=== PATIENT | female | born 1990 | race Two or more races ===

== ENCOUNTER 2019-04-17 18:25 | Emergency (ER) | payer SELFPAY ==
--- NOTE | 2019-04-17 19:24 | EDM.PDOC ---
ED HPI GENERAL MEDICAL PROBLEM - General Chief Complaint: Genitourinary Problem Stated Complaint: DONT FEEL WELL Time Seen by Provider: 04/17/19 19:13 - History of Present Illness INITIAL COMMENTS - FREE TEXT/NARRATIVE: HISTORY AND PHYSICAL: History of present illness: Patient 28-year-old female who presents with a concern of painless jaundice she' s had this 1 week she does have history of IV drug abuse she denies known history of HIV hepatitis or any other medical problems. Review of systems: As per history of present illness and below otherwise all systems reviewed and negative. Past medical history: As per history of present illness and as reviewed below otherwise noncontributory. Surgical history: As per history of present illness and as reviewed below otherwise noncontributory. Social history: No reported history of drug or alcohol abuse. Family history: As per history of present illness and as reviewed below otherwise noncontributory. Physical exam: HEENT: Atraumatic, normocephalic, pupils reactive, scleral icterus noted, mucous membranes moist, throat clear, neck supple, nontender, trachea midline. Lungs: Clear to auscultation, breath sounds equal bilaterally, chest nontender. Heart: S1S2, regular, negative for clicks, rubs, or JVD. Abdomen: Soft, nondistended, nontender. Negative for masses or hepatosplenomegaly. Negative for costovertebral tenderness. Pelvis: Stable nontender. Genitourinary: Deferred. Rectal: Deferred. Extremities: Atraumatic, negative for cords or calf pain. Neurovascular unremarkable. Neuro: Awake, alert, oriented. Cranial nerves II through XII unremarkable. Cerebellum unremarkable. Motor and sensory unremarkable throughout. Exam nonfocal. Diagnostics: CBC CMP PT/INR hCG UA hepatitis panel hepatitis B surface antigen and antibody CT abdomen and pelvis with IV contrast Therapeutics: Normal saline 1 L bolus Impression: #1 painless jaundice Definitive disposition and diagnosis as appropriate pending reevaluation and review of above. lower back Pain Score (Numeric/FACES): 6 - Related Data Allergies Allergy/AdvReac Type Severity Reaction Status Date / Time latex Allergy Rash Verified 04/17/19 18:41 Home Meds: Home Meds . [No Known Home Meds] 01/25/16 [History] Past Medical History - Past Health History Medical/Surgical History: Denies Medical/Surgical History - Infectious Disease History Infectious Disease History: Reports: None Social & Family History - Family History Family Medical History: Noncontributory - Tobacco Use Smoking Status *Q: Current Every Day Smoker Years of Tobacco use: 15 Packs/Tins Daily: 0.5 - Caffeine Use Caffeine Use: Reports: Soda - Recreational Drug Use Recreational Drug Use: Yes Recreational Drug Type: Reports: Methamphetamine, Oxycodone Recreational Drug Use Frequency: Daily ED ROS GENERAL - Review of Systems Review Of Systems: ROS reveals no pertinent complaints other than HPI. ED EXAM, GENERAL - Physical Exam Exam: See Below (The dictation) Course - Vital Signs Last Recorded V/S: Last Vital Signs Temp 36.4 C 04/17/19 18:38 Pulse 95 04/17/19 18:38 Resp 18 04/17/19 18:38 BP 114/63 04/17/19 18:38 Pulse Ox 98 04/17/19 18:38 - Orders/Labs/Meds Orders: Active Orders 24 hr Category Date Time Status COMPREHENSIVE METABOLIC PN,CMP [CHEM] Stat Lab 04/17/19 19:27 Results HEPATITIS B SURFACE AB QUANT [CHEM] Stat Lab 04/17/19 19:27 Results HEPATITIS B SURFACE AG [CHEM] Stat Lab 04/17/19 19:27 Results HEPATITIS C ANTIBODY [CHEM] Stat Lab 04/17/19 19:27 Results HEPATITIS PANEL (4) [REF] Stat Lab 04/17/19 19:17 Ordered Labs: Laboratory Tests 04/17/19 04/17/19 04/17/19 Range/Units 18:45 18:45 19:27 WBC 6.23 (4.0-11.0) K/uL RBC 4.41 (4.30-5.90) M/uL Hgb 13.1 (12.0-16.0) g/dL Hct 39.2 (36.0-46.0) % MCV 88.9 (80.0-98.0) fL MCH 29.7 (27.0-32.0) pg MCHC 33.4 (31.0-37.0) g/dL RDW Std Deviation 45.9 (28.0-62.0) fl RDW Coeff of Sahni 14 (11.0-15.0) % Plt Count 296 (150-400) K/uL MPV 10.10 (7.40-12.00) fL Neut % (Auto) 57.8 (48.0-80.0) % Lymph % (Auto) 32.3 (16.0-40.0) % Chaves % (Auto) 5.6 (0.0-15.0) % Eos % (Auto) 3.7 (0.0-7.0) % Baso % (Auto) 0.6 (0.0-1.5) % Neut # (Auto) 3.6 (1.4-5.7) K/uL Lymph # (Auto) 2.0 (0.6-2.4) K/uL Chaves # (Auto) 0.4 (0.0-0.8) K/uL Eos # (Auto) 0.2 (0.0-0.7) K/uL Baso # (Auto) 0.0 (0.0-0.1) K/uL Nucleated RBC % 0.0 /100WBC Nucleated RBCs # 0 K/uL INR Sodium (136-145) mmol/L Potassium (3.5-5.1) mmol/L Chloride (98-107) mmol/L Carbon Dioxide (21.0-32.0) mmol/L BUN (7.0-18.0) mg/dL Creatinine (0.6-1.0) mg/dL Est Cr Clr Drug Dosing mL/min Estimated GFR (MDRD) ml/min Glucose (74-106) mg/dL Calcium (8.5-10.1) mg/dL Total Bilirubin (0.2-1.0) mg/dL AST (15-37) IU/L ALT (14-63) IU/L Alkaline Phosphatase (46-116) U/L Total Protein (6.4-8.2) g/dL Albumin (3.4-5.0) g/dL Globulin (2.6-4.0) g/dL Albumin/Globulin Ratio (0.9-1.6) Urine Color DARK YELLOW Urine Appearance CLEAR Urine pH 6.5 (5.0-8.0) Ur Specific Sodus 1.020 (1.001-1.035) Urine Protein TRACE H (NEGATIVE) mg/dL Urine Glucose (UA) NEGATIVE (NEGATIVE) mg/dL Urine Ketones TRACE H (NEGATIVE) mg/dL Urine Occult Blood LARGE H (NEGATIVE) Urine Nitrite NEGATIVE (NEGATIVE) Urine Bilirubin LARGE H (NEGATIVE) Urine Ictotest POSITIVE Urine Urobilinogen 2.0 H (<2.0) EU/dL Ur Leukocyte Esterase NEGATIVE (NEGATIVE) Urine RBC 8-10 (0-2/HPF) Urine WBC 0-2 (0-5/HPF) Ur Epithelial Cells FEW (NONE-FEW) Calcium Oxalate Crystal FEW (NEGATIVE) Urine Bacteria 1+ H (NEGATIVE) Urine Mucus MODERATE (NONE-MOD) Urine HCG, Qual NEGATIVE (NEGATIVE) 04/17/19 04/17/19 Range/Units 19:27 19:27 WBC (4.0-11.0) K/uL RBC (4.30-5.90) M/uL Hgb (12.0-16.0) g/dL Hct (36.0-46.0) % MCV (80.0-98.0) fL MCH (27.0-32.0) pg MCHC (31.0-37.0) g/dL RDW Std Deviation (28.0-62.0) fl RDW Coeff of Shani (11.0-15.0) % Plt Count (150-400) K/uL MPV (7.40-12.00) fL Neut % (Auto) (48.0-80.0) % Lymph % (Auto) (16.0-40.0) % Chaves % (Auto) (0.0-15.0) % Eos % (Auto) (0.0-7.0) % Baso % (Auto) (0.0-1.5) % Neut # (Auto) (1.4-5.7) K/uL Lymph # (Auto) (0.6-2.4) K/uL Chaves # (Auto) (0.0-0.8) K/uL Eos # (Auto) (0.0-0.7) K/uL Baso # (Auto) (0.0-0.1) K/uL Nucleated RBC % /100WBC Nucleated RBCs # K/uL INR 1.39 Sodium 141 (136-145) mmol/L Potassium 3.7 (3.5-5.1) mmol/L Chloride 102 (98-107) mmol/L Carbon Dioxide 30.7 (21.0-32.0) mmol/L BUN 7 (7.0-18.0) mg/dL Creatinine 0.7 (0.6-1.0) mg/dL Est Cr Clr Drug Dosing 129.39 mL/min Estimated GFR (MDRD) > 60.0 ml/min Glucose 108 H (74-106) mg/dL Calcium 8.8 (8.5-10.1) mg/dL Total Bilirubin 6.2 H (0.2-1.0) mg/dL AST 1440 H (15-37) IU/L ALT 2758 H (14-63) IU/L Alkaline Phosphatase 174 H (46-116) U/L Total Protein 7.2 (6.4-8.2) g/dL Albumin 3.5 (3.4-5.0) g/dL Globulin 3.7 (2.6-4.0) g/dL Albumin/Globulin Ratio 0.9 (0.9-1.6) Urine Color Urine Appearance Urine pH (5.0-8.0) Ur Specific Sodus (1.001-1.035) Urine Protein (NEGATIVE) mg/dL Urine Glucose (UA) (NEGATIVE) mg/dL Urine Ketones (NEGATIVE) mg/dL Urine Occult Blood (NEGATIVE) Urine Nitrite (NEGATIVE) Urine Bilirubin (NEGATIVE) Urine Ictotest Urine Urobilinogen (<2.0) EU/dL Ur Leukocyte Esterase (NEGATIVE) Urine RBC (0-2/HPF) Urine WBC (0-5/HPF) Ur Epithelial Cells (NONE-FEW) Calcium Oxalate Crystal (NEGATIVE) Urine Bacteria (NEGATIVE) Urine Mucus (NONE-MOD) Urine HCG, Qual (NEGATIVE) Meds: Medications Discontinued Medications Generic Name Dose Route Start Last Admin Trade Name Jorge PRN Reason Stop Dose Admin Iopamidol 100 ml 04/17/19 20:19 04/17/19 20:20 Isovue Multipack-370 (76%) IVPUSH 04/17/19 20:20 100 ml ONETIME STA Administration Departure - Departure Time of Disposition: 20:39 Disposition: Home, Self-Care 01 Condition: Good Clinical Impression: Jaundice - Discharge Information Referrals: PCP,None [Primary Care Provider] - Forms: ED Department Discharge Additional Instructions: The following information is given to patients seen in the emergency department who are being discharged to home. This information is to outline your options for follow-up care. We provide all patients seen in our emergency department with a follow-up referral. The need for follow-up, as well as the timing and circumstances, are variable depending upon the specifics of your emergency department visit. If you don't have a primary care physician on staff, we will provide you with a referral. We always advise you to contact your personal physician following an emergency department visit to inform them of the circumstance of the visit and for follow-up with them and/or the need for any referrals to a consulting specialist. The emergency department will also refer you to a specialist when appropriate. This referral assures that you have the opportunity for followup care with a specialist. All of these measure are taken in an effort to provide you with optimal care, which includes your followup. Under all circumstances we always encourage you to contact your private physician who remains a resource for coordinating your care. When calling for followup care, please make the office aware that this follow-up is from your recent emergency room visit. If for any reason you are refused follow-up, please contact the [facility] emergency department at and asked to speak to the emergency department charge nurse. [facility] [address] [place] [address] Follow-up gastroenterology and primary care as discussed avoid alcohol avoid Tylenol push fluids and return as needed as discussed - My Orders Last 24 Hours: My Active Orders 04/17/19 19:17 HEPATITIS PANEL (4) [REF] Stat 04/17/19 19:27 COMPREHENSIVE METABOLIC PN,CMP [CHEM] Stat HEPATITIS B SURFACE AB QUANT [CHEM] Stat HEPATITIS B SURFACE AG [CHEM] Stat HEPATITIS C ANTIBODY [CHEM] Stat - Assessment/Plan Last 24 Hours: My Active Orders 04/17/19 19:17 HEPATITIS PANEL (4) [REF] Stat 04/17/19 19:27 COMPREHENSIVE METABOLIC PN,CMP [CHEM] Stat HEPATITIS B SURFACE AB QUANT [CHEM] Stat HEPATITIS B SURFACE AG [CHEM] Stat HEPATITIS C ANTIBODY [CHEM] Stat
[2019-04-17 20:02] LABS: CHLORIDE,CL 102 mmol/L (98-107); SODIUM,NA 141 mmol/L (136-145)
[2019-04-17] MEDS ORDERED: Iopamidol 755 MG/ML 500 ML Multipack Bottle IVPUSH STA (20:19)
--- NOTE | 2019-04-17 20:33 | CT ---
INDICATION: Malaise. Yellow eyes. Dark urine TECHNIQUE: CT abdomen and pelvis acquired with IV contrast. 100 mL of Isovue 370 administered. COMPARISON: None available FINDINGS: Lower chest: Unremarkable. Liver: Slight central periportal edema, nonspecific. No discrete parenchymal abnormality seen. Spleen: Unremarkable. Pancreas: Unremarkable. Gallbladder and bile ducts: Apparent small pericholecystic edema, however the gallbladder is partially contracted. Adrenal glands: Unremarkable. Kidneys: Unremarkable. GI tract: Unremarkable. Appendix is normal. Vascular structures: Normal aortic caliber. Prominence of the gonadal veins with mildly asymmetrical opacification on the left. Lymph nodes: A few borderline periportal and portacaval lymph nodes, nonspecific. Miscellaneous: No significant free fluid or free air. Pelvic Organs: Mild bladder wall prominence could be related to under distention. No gross uterine abnormality seen. Bones: A large right paracentral disc protrusion/extrusion at L5-S1, indenting the thecal sac. IMPRESSION: Slight central periportal edema, nonspecific. Given the history, correlate with hepatic enzymes. Mild bladder wall prominence versus underdistention. Correlate with urinalysis to exclude mild cystitis. No evidence of appendicitis, diverticulitis or bowel obstruction. Prominent gonadal veins. Correlate clinically to exclude pelvic congestion syndrome. A large L5-S1 disk protrusion/extrusion, indenting the thecal sac. Dictated by Arash Lopez MD @ 04/17/2019 8:32:25 PM Please note that all CT scans at this facility use dose modulation, iterative reconstruction, and/or weight-based dosing when appropriate to reduce radiation dose to as low as reasonably achievable. Dictated by: Arash Lopez MD @ 04/17/2019 20:32:32 (Electronically Signed)
[2019-04-17 21:18] VITALS: BP 118/73
== END 2019-04-17 21:14 | disposition home or self-care (01) ==
LOC: MW.ED 18:25
DX: R17 Unspecified jaundice (principal); Z91.040 Latex allergy status
CPT/HCPCS: 74177; 80053; 80074; 81001; 81025; 85025; 85610; 86706; 86803; 87340; 99285; Q9967; 36415; 99284

== ENCOUNTER 2019-05-02 21:38 | Emergency (ER) | payer SELFPAY ==
--- NOTE | 2019-05-02 21:45 | EDM.PDOC ---
ED HPI GENERAL MEDICAL PROBLEM - General Stated Complaint: LETHARGIC, WEAK, VOMITING, ISSUES W LIVER Time Seen by Provider: 05/02/19 21:43 - History of Present Illness INITIAL COMMENTS - FREE TEXT/NARRATIVE: HISTORY AND PHYSICAL: History of present illness: The patient is a 28-year-old female who presents to the ED with complaints of generalized weakness and malaise feeling rundown upper abdominal discomfort which is dull in character and intermittent vomiting. She's had no fevers chest pain or shortness of breath and no diarrhea. She's had normal urine output and has been trying to drink fluids. She says she was seen here in the emergency department on April 17 and did follow-up in the clinic with one of our mid-level providers and her testing results were discussed with her. It was arranged for her to follow-up with a GI specialist who comes to [facility] across the street and she has an appointment for May 14 to discuss her liver tests and her GI issues. The patient admits to me that she does use heroin and smokes it and did do some yesterday. He says she has a history of IV drug use in the past but only for 1-1/2 months and does not use IV drugs currently. She has no abdominal surgery surgical history and no GI history in the past. She denies as she is not sexually active. The patient says that after her visit here on April 17 she did feel significantly better and then her symptoms restarted 3 days ago. She tells me that on her last visit she was significantly jaundiced and looked like a crayon but she does not feel that she has to that level again but she is concerned about her liver numbers. The patient says she has been having normal bowel movements and has not lacrimal bloody and there are not wait or pasty The patient was seen here in our emergency department just last month on April 17 with painless jaundice. She had a CBC CMP UA and CT scan of the abdomen and pelvis which I reviewed. Her liver function tests indicated a bilirubin of 6.2 AST 1440 ALT 2758 and INR of 1.39 she had a hepatitis panel done which was negative for A and B did show positive for hep C. Her CT scan was reviewed and did show some periportal edema but no other liver or gallbladder disease. The patient admitted at that time to the provider that she did have a history of IV drug use. Review of systems: As per history of present illness and below otherwise all systems reviewed and negative. Past medical history: As per history of present illness and as reviewed below otherwise noncontributory. Surgical history: As per history of present illness and as reviewed below otherwise noncontributory. Social history: No reported history of drug or alcohol abuse. Family history: As per history of present illness and as reviewed below otherwise noncontributory. Physical exam: General: Well-developed well-nourished female who is nontoxic and vital signs were noted by me. HEENT: Atraumatic, normocephalic, pupils reactive, negative for conjunctival pallor or scleral icterus, mucous membranes dry, throat clear, neck supple, nontender, trachea midline. Lungs: Clear to auscultation, breath sounds equal bilaterally, chest nontender. Heart: S1S2, regular rate and rhythm no overt murmurs Abdomen: Soft, nondistended, nontender. No sounds are slightly hypoactive and on palpation in the upper abdomen where she says she is having discomfort there is really no significant findings such as tenderness rebound distention or guarding. Negative for masses or hepatosplenomegaly. Negative for costovertebral tenderness. Pelvis: Stable nontender. Genitourinary: Deferred. Rectal: Deferred. Extremities: Atraumatic, negative for cords or calf pain. Neurovascular unremarkable. Neuro: Awake, alert, oriented. Cranial nerves II through XII unremarkable. Cerebellum unremarkable. Motor and sensory unremarkable throughout. Exam nonfocal. Skin: No evidence of any overt rashes or lesions Diagnostics: CBC CMP amylase lipase INR ammonia level UA UDS UCG Therapeutics: IV fluids Zofran Protonix I have reviewed the patient's lab tests and discuss him with the patient including the mild improvement of her bilirubin and liver function tests. I've also discussed with her the slight bump in her INR as well as her urine drug test. She tells me that she did not knowingly do methamphetamine but that she will investigate that further as she only knows about her own use and she also is investigating drug rehabilitation options along with addressing her medical issues. She seems very concerned about her health in general and very on top that which is appreciated I told her that at this point because she has no issues with mentation confusion or neurologic symptoms I will not treat the ammonia level as it is only slightly above our normal range. She will continue to monitor her symptoms and keep her follow-up appointments. I've advised on reasons to return to the ED with water in the department without any distress Impression: Generalized malaise and abdominal discomfort, history of elevated liver tests improving Definitive disposition and diagnosis as appropriate pending reevaluation and review of above. Generalized Pain Score (Numeric/FACES): 3 - Related Data Allergies Allergy/AdvReac Type Severity Reaction Status Date / Time latex Allergy Rash Verified 05/02/19 21:52 Home Meds: Home Meds . [No Known Home Meds] 01/25/16 [History] Past Medical History - Past Health History Medical/Surgical History: Denies Medical/Surgical History - Infectious Disease History Infectious Disease History: Reports: None Social & Family History - Family History Family Medical History: Noncontributory - Caffeine Use Caffeine Use: Reports: Soda ED ROS GENERAL - Review of Systems Review Of Systems: ROS reveals no pertinent complaints other than HPI. ED EXAM, GENERAL - Physical Exam Exam: See Below (See dictation) Course - Vital Signs Last Recorded V/S: Last Vital Signs Temp 36.5 C 05/02/19 21:48 Pulse 73 05/02/19 21:48 Resp BP 127/83 05/02/19 21:48 Pulse Ox 100 05/02/19 21:48 - Orders/Labs/Meds Orders: Active Orders 24 hr Category Date Time Status Sodium Chloride 0.9% [Normal Saline] 500 ml Med 05/02/19 22:30 Active IV STAT Sodium Chloride 0.9% [Saline Flush] Med 05/02/19 21:47 Active 10 ml FLUSH ASDIRECTED PRN Sodium Chloride 0.9% [Saline Flush] Med 05/02/19 21:47 Active 2.5 ml FLUSH ASDIRECTED PRN Saline Lock Insert [OM.PC] Stat Oth 05/02/19 21:46 Ordered Medication Orders Sodium Chloride (Normal Saline) 500 mls @ 999 mls/hr IV STAT NADINE Sodium Chloride (Saline Flush) 10 ml FLUSH ASDIRECTED PRN PRN Reason: Keep Vein Open Sodium Chloride (Saline Flush) 2.5 ml FLUSH ASDIRECTED PRN PRN Reason: Keep Vein Open Labs: Laboratory Tests 05/02/19 05/02/19 05/02/19 Range/Units 21:45 21:45 21:45 WBC (4.0-11.0) K/uL RBC (4.30-5.90) M/uL Hgb (12.0-16.0) g/dL Hct (36.0-46.0) % MCV (80.0-98.0) fL MCH (27.0-32.0) pg MCHC (31.0-37.0) g/dL RDW Std Deviation (28.0-62.0) fl RDW Coeff of Shani (11.0-15.0) % Plt Count (150-400) K/uL MPV (7.40-12.00) fL Add Manual Diff Neutrophils % (Manual) (48.0-80.0) % Band Neutrophils % % Lymphocytes % (Manual) (16.0-40.0) % Monocytes % (Manual) (0.0-15.0) % Eosinophils % (Manual) (0.0-7.0) % Basophils % (Manual) (0.0-1.5) % Nucleated RBC % /100WBC Absolute Seg Neuts (1.4-5.7) Band Neutrophils # Lymphocytes # (Manual) (0.6-2.4) Monocytes # (Manual) (0.0-0.8) Eosinophils # (Manual) (0.0-0.7) Basophils # (Manual) (0.0-0.1) Nucleated RBCs # K/uL INR Sodium (136-145) mmol/L Potassium (3.5-5.1) mmol/L Chloride (98-107) mmol/L Carbon Dioxide (21.0-32.0) mmol/L BUN (7.0-18.0) mg/dL Creatinine (0.6-1.0) mg/dL Est Cr Clr Drug Dosing mL/min Estimated GFR (MDRD) ml/min Glucose (74-106) mg/dL Calcium (8.5-10.1) mg/dL Total Bilirubin (0.2-1.0) mg/dL AST (15-37) IU/L ALT (14-63) IU/L Alkaline Phosphatase (46-116) U/L Ammonia (19-54) ug/dL Total Protein (6.4-8.2) g/dL Albumin (3.4-5.0) g/dL Globulin (2.6-4.0) g/dL Albumin/Globulin Ratio (0.9-1.6) Amylase (25-115) U/L Lipase (73-393) U/L Urine Color DARK YELLOW Urine Appearance SLT CLOUDY Urine pH 5.0 (5.0-8.0) Ur Specific [place] >= 1.030 (1.001-1.035) Urine Protein NEGATIVE (NEGATIVE) mg/dL Urine Glucose (UA) 100 H (NEGATIVE) mg/dL Urine Ketones NEGATIVE (NEGATIVE) mg/dL Urine Occult Blood NEGATIVE (NEGATIVE) Urine Nitrite NEGATIVE (NEGATIVE) Urine Bilirubin LARGE H (NEGATIVE) Urine Ictotest POSITIVE Urine Urobilinogen 2.0 H (<2.0) EU/dL Ur Leukocyte Esterase NEGATIVE (NEGATIVE) Urine HCG, Qual NEGATIVE (NEGATIVE) Urine Opiates Screen POSITIVE (NEGATIVE) Ur Oxycodone Screen POSITIVE (NEGATIVE) Urine Methadone Screen NEGATIVE (NEGATIVE) Ur Barbiturates Screen NEGATIVE (NEGATIVE) Ur Phencyclidine Scrn NEGATIVE (NEGATIVE) Ur Amphetamine Screen NEGATIVE (NEGATIVE) U Methamphetamines Scrn POSITIVE (NEGATIVE) U Benzodiazepines Scrn NEGATIVE (NEGATIVE) U Cocaine Metab Screen NEGATIVE (NEGATIVE) U Marijuana (THC) Screen NEGATIVE (NEGATIVE) 05/02/19 05/02/19 05/02/19 Range/Units 21:56 21:56 21:56 WBC 8.01 (4.0-11.0) K/uL RBC 4.56 (4.30-5.90) M/uL Hgb 13.3 (12.0-16.0) g/dL Hct 41.2 (36.0-46.0) % MCV 90.4 (80.0-98.0) fL MCH 29.2 (27.0-32.0) pg MCHC 32.3 (31.0-37.0) g/dL RDW Std Deviation 50.9 (28.0-62.0) fl RDW Coeff of Shani 15 (11.0-15.0) % Plt Count 222 (150-400) K/uL MPV 10.70 (7.40-12.00) fL Add Manual Diff YES Neutrophils % (Manual) 33 L (48.0-80.0) % Band Neutrophils % 1 % Lymphocytes % (Manual) 57 H (16.0-40.0) % Monocytes % (Manual) 4 (0.0-15.0) % Eosinophils % (Manual) 4 (0.0-7.0) % Basophils % (Manual) 1 (0.0-1.5) % Nucleated RBC % 0.0 /100WBC Absolute Seg Neuts 2.6 (1.4-5.7) Band Neutrophils # 0.1 Lymphocytes # (Manual) 4.6 H (0.6-2.4) Monocytes # (Manual) 0.3 (0.0-0.8) Eosinophils # (Manual) 0.3 (0.0-0.7) Basophils # (Manual) 0.1 (0.0-0.1) Nucleated RBCs # 0 K/uL INR 1.43 Sodium 138 (136-145) mmol/L Potassium 3.6 (3.5-5.1) mmol/L Chloride 101 (98-107) mmol/L Carbon Dioxide 32.4 H (21.0-32.0) mmol/L BUN 8 (7.0-18.0) mg/dL Creatinine 0.7 (0.6-1.0) mg/dL Est Cr Clr Drug Dosing 129.39 mL/min Estimated GFR (MDRD) > 60.0 ml/min Glucose 79 (74-106) mg/dL Calcium 8.9 (8.5-10.1) mg/dL Total Bilirubin 5.1 H (0.2-1.0) mg/dL AST 1380 H (15-37) IU/L ALT 1586 H (14-63) IU/L Alkaline Phosphatase 156 H (46-116) U/L Ammonia (19-54) ug/dL Total Protein 7.7 (6.4-8.2) g/dL Albumin 3.6 (3.4-5.0) g/dL Globulin 4.1 H (2.6-4.0) g/dL Albumin/Globulin Ratio 0.9 (0.9-1.6) Amylase 25 (25-115) U/L Lipase 59 L (73-393) U/L Urine Color Urine Appearance Urine pH (5.0-8.0) Ur Specific [place] (1.001-1.035) Urine Protein (NEGATIVE) mg/dL Urine Glucose (UA) (NEGATIVE) mg/dL Urine Ketones (NEGATIVE) mg/dL Urine Occult Blood (NEGATIVE) Urine Nitrite (NEGATIVE) Urine Bilirubin (NEGATIVE) Urine Ictotest Urine Urobilinogen (<2.0) EU/dL Ur Leukocyte Esterase (NEGATIVE) Urine HCG, Qual (NEGATIVE) Urine Opiates Screen (NEGATIVE) Ur Oxycodone Screen (NEGATIVE) Urine Methadone Screen (NEGATIVE) Ur Barbiturates Screen (NEGATIVE) Ur Phencyclidine Scrn (NEGATIVE) Ur Amphetamine Screen (NEGATIVE) U Methamphetamines Scrn (NEGATIVE) U Benzodiazepines Scrn (NEGATIVE) U Cocaine Metab Screen (NEGATIVE) U Marijuana (THC) Screen (NEGATIVE) 05/02/19 Range/Units 22:45 WBC (4.0-11.0) K/uL RBC (4.30-5.90) M/uL Hgb (12.0-16.0) g/dL Hct (36.0-46.0) % MCV (80.0-98.0) fL MCH (27.0-32.0) pg MCHC (31.0-37.0) g/dL RDW Std Deviation (28.0-62.0) fl RDW Coeff of Shani (11.0-15.0) % Plt Count (150-400) K/uL MPV (7.40-12.00) fL Add Manual Diff Neutrophils % (Manual) (48.0-80.0) % Band Neutrophils % % Lymphocytes % (Manual) (16.0-40.0) % Monocytes % (Manual) (0.0-15.0) % Eosinophils % (Manual) (0.0-7.0) % Basophils % (Manual) (0.0-1.5) % Nucleated RBC % /100WBC Absolute Seg Neuts (1.4-5.7) Band Neutrophils # Lymphocytes # (Manual) (0.6-2.4) Monocytes # (Manual) (0.0-0.8) Eosinophils # (Manual) (0.0-0.7) Basophils # (Manual) (0.0-0.1) Nucleated RBCs # K/uL INR Sodium (136-145) mmol/L Potassium (3.5-5.1) mmol/L Chloride (98-107) mmol/L Carbon Dioxide (21.0-32.0) mmol/L BUN (7.0-18.0) mg/dL Creatinine (0.6-1.0) mg/dL Est Cr Clr Drug Dosing mL/min Estimated GFR (MDRD) ml/min Glucose (74-106) mg/dL Calcium (8.5-10.1) mg/dL Total Bilirubin (0.2-1.0) mg/dL AST (15-37) IU/L ALT (14-63) IU/L Alkaline Phosphatase (46-116) U/L Ammonia 65 H (19-54) ug/dL Total Protein (6.4-8.2) g/dL Albumin (3.4-5.0) g/dL Globulin (2.6-4.0) g/dL Albumin/Globulin Ratio (0.9-1.6) Amylase (25-115) U/L Lipase (73-393) U/L Urine Color Urine Appearance Urine pH (5.0-8.0) Ur Specific [place] (1.001-1.035) Urine Protein (NEGATIVE) mg/dL Urine Glucose (UA) (NEGATIVE) mg/dL Urine Ketones (NEGATIVE) mg/dL Urine Occult Blood (NEGATIVE) Urine Nitrite (NEGATIVE) Urine Bilirubin (NEGATIVE) Urine Ictotest Urine Urobilinogen (<2.0) EU/dL Ur Leukocyte Esterase (NEGATIVE) Urine HCG, Qual (NEGATIVE) Urine Opiates Screen (NEGATIVE) Ur Oxycodone Screen (NEGATIVE) Urine Methadone Screen (NEGATIVE) Ur Barbiturates Screen (NEGATIVE) Ur Phencyclidine Scrn (NEGATIVE) Ur Amphetamine Screen (NEGATIVE) U Methamphetamines Scrn (NEGATIVE) U Benzodiazepines Scrn (NEGATIVE) U Cocaine Metab Screen (NEGATIVE) U Marijuana (THC) Screen (NEGATIVE) Meds: Medications Generic Name Dose Route Start Last Admin Trade Name Freq PRN Reason Stop Dose Admin Sodium Chloride 500 mls @ 999 mls/hr 05/02/19 22:30 Normal Saline IV STAT NADINE Sodium Chloride 10 ml 05/02/19 21:47 Saline Flush FLUSH ASDIRECTED PRN Keep Vein Open Sodium Chloride 2.5 ml 05/02/19 21:47 Saline Flush FLUSH ASDIRECTED PRN Keep Vein Open Discontinued Medications Generic Name Dose Route Start Last Admin Trade Name Freq PRN Reason Stop Dose Admin Sodium Chloride 1,000 mls @ 999 mls/hr 05/02/19 21:47 05/02/19 22:07 Normal Saline IV 05/02/19 22:47 999 mls/hr STAT ONE Administration Sodium Chloride Confirm 05/02/19 22:04 05/02/19 22:09 Normal Saline Administered 05/02/19 22:05 20 mls/hr Dose Administration 20 mls @ as directed .ROUTE .STK-MED ONE Ondansetron HCl 4 mg 05/02/19 21:57 05/02/19 22:08 Zofran IVPUSH 05/02/19 21:58 4 mg ONETIME ONE Administration Pantoprazole Sodium 80 mg 05/02/19 21:57 05/02/19 22:09 Protonix Iv IVPUSH 05/02/19 21:58 80 mg .BOLUS ONE Administration Departure - Departure Time of Disposition: 23:36 Disposition: Home, Self-Care 01 Condition: Good Clinical Impression: Elevated liver function tests, Generalized weakness - Discharge Information Referrals: Catina Sanchez PA [Primary Care Provider] - Additional Instructions: The following information is given to patients seen in the emergency department who are being discharged to home. This information is to outline your options for follow-up care. We provide all patients seen in our emergency department with a follow-up referral. The need for follow-up, as well as the timing and circumstances, are variable depending upon the specifics of your emergency department visit. If you don't have a primary care physician on staff, we will provide you with a referral. We always advise you to contact your personal physician following an emergency department visit to inform them of the circumstance of the visit and for follow-up with them and/or the need for any referrals to a consulting specialist. The emergency department will also refer you to a specialist when appropriate. This referral assures that you have the opportunity for followup care with a specialist. All of these measure are taken in an effort to provide you with optimal care, which includes your followup. Under all circumstances we always encourage you to contact your private physician who remains a resource for coordinating your care. When calling for followup care, please make the office aware that this follow-up is from your recent emergency room visit. If for any reason you are refused follow-up, please contact the [facility] emergency department at and ask to speak to the emergency department charge nurse. [facility] Primary care- Internal Medicine and Family [place] [id number] [place] [id number] Push hydration and avoid caffeinated products and please keep your scheduled appointment with the GI specialist this month for further care and evaluation. Please bring today's lab tests with you so that he will have all of the results and can compare them from last visit to this visit. Please try to eat a land diet and avoid drug use. Call and schedule a follow-up appointment with your provider in the clinic in the interim as needed and return to ER as needed and as discussed - My Orders Last 24 Hours: My Active Orders 05/02/19 21:46 Saline Lock Insert [OM.PC] Stat 05/02/19 21:47 Sodium Chloride 0.9% [Saline Flush] 10 ml FLUSH ASDIRECTED PRN Sodium Chloride 0.9% [Saline Flush] 2.5 ml FLUSH ASDIRECTED PRN 05/02/19 22:30 Sodium Chloride 0.9% [Normal Saline] 500 ml IV STAT - Assessment/Plan Last 24 Hours: My Active Orders 05/02/19 21:46 Saline Lock Insert [OM.PC] Stat 05/02/19 21:47 Sodium Chloride 0.9% [Saline Flush] 10 ml FLUSH ASDIRECTED PRN Sodium Chloride 0.9% [Saline Flush] 2.5 ml FLUSH ASDIRECTED PRN 05/02/19 22:30 Sodium Chloride 0.9% [Normal Saline] 500 ml IV STAT
[2019-05-02] MEDS ORDERED: Sodium Chloride 0.9% 2.5 ML Syringe FLUSH PRN (21:47)
[2019-05-02] MEDS ORDERED: Sodium Chloride 0.9% 1,000 ML IV ONE (21:47)
[2019-05-02] MEDS ORDERED: Sodium Chloride 0.9% 10 ML Syringe FLUSH PRN (21:47)
[2019-05-02] MEDS ORDERED: Ondansetron 4 MG/2 ML SDV IVPUSH ONE (21:57)
[2019-05-02] MEDS ORDERED: Pantoprazole 40 MG Vial IVPUSH ONE (21:57)
[2019-05-02] MEDS ORDERED: Sodium Chloride 0.9% 20 ML ONE (22:04)
[2019-05-02] MEDS ORDERED: Sodium Chloride 0.9% 500 ML IV SCH (22:30)
[2019-05-02 22:33] LABS: CHLORIDE,CL 101 mmol/L (98-107); SODIUM,NA 138 mmol/L (136-145)
[2019-05-02 23:50] VITALS: BP 107/71
== END 2019-05-03 00:04 | disposition home or self-care (01) ==
LOC: MW.ED 21:38
DX: R53.81 Other malaise (principal); R53.1 Weakness; R10.9 Unspecified abdominal pain; R94.5 Abnormal results of liver function studies; Z91.040 Latex allergy status
CPT/HCPCS: 36415; 80053; 80305; 81003; 81025; 82140; 82150; 83690; 85025; 85610; 96361; 96374; 96375; 99284; C9113; J2405; J7040

== ENCOUNTER 2019-05-04 23:30 | Emergency (ER) | payer SELFPAY ==
--- NOTE | 2019-05-04 23:52 | EDM.PDOC ---
ED HPI GENERAL MEDICAL PROBLEM - General Chief Complaint: Gastrointestinal Problem Stated Complaint: PER PT; SHE DOESN'T FEEL GOOD Time Seen by Provider: 05/04/19 23:49 - History of Present Illness INITIAL COMMENTS - FREE TEXT/NARRATIVE: HISTORY AND PHYSICAL: History of present illness: The patient is a 28-year-old female who is well known to me as I saw her here - 2 days ago on May 02 and she was also seen here in the emergency department on April 17 for painless jaundice. On her March visit she had a full lab workup and a CT scan and followed up in our clinic and has GI appointment set up on April 12 for further care of this jaundice. She had a hepatitis panel which confirmed that she had hep C and she came here 2 days ago saying that she did not feel as jaundiced but she felt worn down and lethargic and had some upper abdominal pain. I repeated the labs at that time and they did show improvement and she was discharged home and was comfortable with that with follow-up in the clinic. She called earlier into the ED concerned that her symptoms were worsening again and she has now presented to the ED for evaluation. He says that she still feels very run down and tired and she has some nausea without vomiting or diarrhea. She's had no fevers chills chest pain or shortness of breath. She says she thinks that she looks more jaundiced and wants her blood work rechecked. She has a history of smoking her when and says that she has not done any since I last saw her. She does have a history of IV drug use in the past but denies that Review of systems: As per history of present illness and below otherwise all systems reviewed and negative. Past medical history: As per history of present illness and as reviewed below otherwise noncontributory. Surgical history: As per history of present illness and as reviewed below otherwise noncontributory. Social history: No reported history of drug or alcohol abuse. Family history: As per history of present illness and as reviewed below otherwise noncontributory. Physical exam: General: Well-developed well-nourished female who is nontoxic and vital signs are noted by me HEENT: Atraumatic, normocephalic, pupils reactive, negative for conjunctival pallor , mucous membranes moist, throat clear, neck supple, nontender, trachea midline. The patient has overall sallow appearance and some slight jaundice of her sclera Lungs: Clear to auscultation, breath sounds equal bilaterally, chest nontender. Heart: S1S2, regular rate and rhythm no overt murmurs Abdomen: Soft, nondistended, nontender. Negative for masses or hepatosplenomegaly. Negative for costovertebral tenderness. Pelvis: Deferred Genitourinary: Deferred. Rectal: Deferred. Extremities: Atraumatic, negative for cords or calf pain. Neurovascular unremarkable. Neuro: Awake, alert, oriented. Cranial nerves II through XII unremarkable. Cerebellum unremarkable. Motor and sensory unremarkable throughout. Exam nonfocal. Diagnostics: CBC CMP INR ammonia Therapeutics: IV fluids Zofran Patient is aware of all testing results including trend downward of her INR as well as her liver enzymes and a maintenance of her bilirubin within the same range as her prior 2 visits. I will give her Zofran for home and advised on reasons to return Impression: Elevated liver function tests with history of hep C Definitive disposition and diagnosis as appropriate pending reevaluation and review of above. - Related Data Allergies Allergy/AdvReac Type Severity Reaction Status Date / Time latex Allergy Rash Verified 05/04/19 23:58 Home Meds: Home Meds . 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: Musculoskeletal History: Reports: None Neurological History: Reports: None Psychiatric History: Reports: Anxiety Endocrine/Metabolic History: Reports: None Hematologic History: Reports: None Immunologic History: Reports: None Oncologic (Cancer) History: Reports: None Dermatologic History: Reports: None - Infectious Disease History Infectious Disease History: Reports: None - Past Surgical History Head Surgeries/Procedures: Reports: None Social & Family History - Family History Family Medical History: Noncontributory - Caffeine Use Caffeine Use: Reports: Soda ED ROS GENERAL - Review of Systems Review Of Systems: ROS reveals no pertinent complaints other than HPI. ED EXAM, GENERAL - Physical Exam Exam: See Below (See dictation) Course - Vital Signs Last Recorded V/S: Last Vital Signs Temp 36.2 C 05/04/19 23:40 Pulse 73 05/04/19 23:40 Resp 18 05/04/19 23:40 BP 121/77 05/04/19 23:40 Pulse Ox 98 05/04/19 23:40 - Orders/Labs/Meds Orders: Active Orders 24 hr Category Date Time Status Sodium Chloride 0.9% [Saline Flush] Med 05/05/19 00:10 Active 10 ml FLUSH ASDIRECTED PRN Sodium Chloride 0.9% [Saline Flush] Med 05/05/19 00:10 Active 2.5 ml FLUSH ASDIRECTED PRN Saline Lock Insert [OM.PC] Stat Oth 05/05/19 00:09 Ordered Medication Orders Sodium Chloride (Saline Flush) 10 ml FLUSH ASDIRECTED PRN PRN Reason: Keep Vein Open Sodium Chloride (Saline Flush) 2.5 ml FLUSH ASDIRECTED PRN PRN Reason: Keep Vein Open Labs: Laboratory Tests 05/05/19 05/05/19 05/05/19 Range/Units 00:10 00:10 00:10 WBC 6.81 (4.0-11.0) K/uL RBC 4.22 L (4.30-5.90) M/uL Hgb 12.5 (12.0-16.0) g/dL Hct 37.5 (36.0-46.0) % MCV 88.9 (80.0-98.0) fL MCH 29.6 (27.0-32.0) pg MCHC 33.3 (31.0-37.0) g/dL RDW Std Deviation 50.0 (28.0-62.0) fl RDW Coeff of Shani 16 H (11.0-15.0) % Plt Count 239 (150-400) K/uL MPV 11.30 (7.40-12.00) fL Neut % (Auto) 39.3 L (48.0-80.0) % Lymph % (Auto) 47.4 H (16.0-40.0) % Dodge % (Auto) 7.0 (0.0-15.0) % Eos % (Auto) 5.6 (0.0-7.0) % Baso % (Auto) 0.7 (0.0-1.5) % Neut # (Auto) 2.7 (1.4-5.7) K/uL Lymph # (Auto) 3.2 H (0.6-2.4) K/uL Dodge # (Auto) 0.5 (0.0-0.8) K/uL Eos # (Auto) 0.4 (0.0-0.7) K/uL Baso # (Auto) 0.1 (0.0-0.1) K/uL Nucleated RBC % 0.0 /100WBC Nucleated RBCs # 0 K/uL INR 1.30 Sodium 137 (136-145) mmol/L Potassium 3.9 (3.5-5.1) mmol/L Chloride 101 (98-107) mmol/L Carbon Dioxide 30.7 (21.0-32.0) mmol/L BUN 8 (7.0-18.0) mg/dL Creatinine 0.6 (0.6-1.0) mg/dL Est Cr Clr Drug Dosing 150.95 mL/min Estimated GFR (MDRD) > 60.0 ml/min Glucose 93 (74-106) mg/dL Calcium 8.8 (8.5-10.1) mg/dL Total Bilirubin 6.3 H (0.2-1.0) mg/dL AST 1046 H (15-37) IU/L ALT 1278 H (14-63) IU/L Alkaline Phosphatase 143 H (46-116) U/L Ammonia (19-54) ug/dL Total Protein 7.3 (6.4-8.2) g/dL Albumin 3.5 (3.4-5.0) g/dL Globulin 3.8 (2.6-4.0) g/dL Albumin/Globulin Ratio 0.9 (0.9-1.6) 05/05/19 Range/Units 00:10 WBC (4.0-11.0) K/uL RBC (4.30-5.90) M/uL Hgb (12.0-16.0) g/dL Hct (36.0-46.0) % MCV (80.0-98.0) fL MCH (27.0-32.0) pg MCHC (31.0-37.0) g/dL RDW Std Deviation (28.0-62.0) fl RDW Coeff of Shani (11.0-15.0) % Plt Count (150-400) K/uL MPV (7.40-12.00) fL Neut % (Auto) (48.0-80.0) % Lymph % (Auto) (16.0-40.0) % Dodge % (Auto) (0.0-15.0) % Eos % (Auto) (0.0-7.0) % Baso % (Auto) (0.0-1.5) % Neut # (Auto) (1.4-5.7) K/uL Lymph # (Auto) (0.6-2.4) K/uL Dodge # (Auto) (0.0-0.8) K/uL Eos # (Auto) (0.0-0.7) K/uL Baso # (Auto) (0.0-0.1) K/uL Nucleated RBC % /100WBC Nucleated RBCs # K/uL INR Sodium (136-145) mmol/L Potassium (3.5-5.1) mmol/L Chloride (98-107) mmol/L Carbon Dioxide (21.0-32.0) mmol/L BUN (7.0-18.0) mg/dL Creatinine (0.6-1.0) mg/dL Est Cr Clr Drug Dosing mL/min Estimated GFR (MDRD) ml/min Glucose (74-106) mg/dL Calcium (8.5-10.1) mg/dL Total Bilirubin (0.2-1.0) mg/dL AST (15-37) IU/L ALT (14-63) IU/L Alkaline Phosphatase (46-116) U/L Ammonia 36 (19-54) ug/dL Total Protein (6.4-8.2) g/dL Albumin (3.4-5.0) g/dL Globulin (2.6-4.0) g/dL Albumin/Globulin Ratio (0.9-1.6) Meds: Medications Generic Name Dose Route Start Last Admin Trade Name Freq PRN Reason Stop Dose Admin Sodium Chloride 10 ml 05/05/19 00:10 Saline Flush FLUSH ASDIRECTED PRN Keep Vein Open Sodium Chloride 2.5 ml 05/05/19 00:10 Saline Flush FLUSH ASDIRECTED PRN Keep Vein Open Discontinued Medications Generic Name Dose Route Start Last Admin Trade Name Freq PRN Reason Stop Dose Admin Sodium Chloride 1,000 mls @ 999 mls/hr 05/05/19 00:10 05/05/19 00:18 Normal Saline IV 05/05/19 01:10 999 mls/hr STAT ONE Administration Ondansetron HCl 4 mg 05/05/19 00:10 05/05/19 00:18 Zofran IVPUSH 05/05/19 00:11 4 mg ONETIME ONE Administration Departure - Departure Time of Disposition: : Disposition: Home, Self-Care 01 Condition: Good Clinical Impression: Elevated liver function tests - Discharge Information Referrals: PCP,None [Primary Care Provider] - Forms: ED Department Discharge Additional Instructions: The following information is given to patients seen in the emergency department who are being discharged to home. This information is to outline your options for follow-up care. We provide all patients seen in our emergency department with a follow-up referral. The need for follow-up, as well as the timing and circumstances, are variable depending upon the specifics of your emergency department visit. If you don't have a primary care physician on staff, we will provide you with a referral. We always advise you to contact your personal physician following an emergency department visit to inform them of the circumstance of the visit and for follow-up with them and/or the need for any referrals to a consulting specialist. The emergency department will also refer you to a specialist when appropriate. This referral assures that you have the opportunity for followup care with a specialist. All of these measure are taken in an effort to provide you with optimal care, which includes your followup. Under all circumstances we always encourage you to contact your private physician who remains a resource for coordinating your care. When calling for followup care, please make the office aware that this follow-up is from your recent emergency room visit. If for any reason you are refused follow-up, please contact the [facility] emergency department at and ask to speak to the emergency department charge nurse. [facility] Primary care- Internal Medicine and Family [address] [id number] Push hydration and use Zofran as prescribed. Please connect with your provider in the clinic to see if they can move your GI appointment sooner and return to ER as needed and as discussed. - My Orders Last 24 Hours: My Active Orders 05/05/19 00:09 Saline Lock Insert [OM.PC] Stat 05/05/19 00:10 Sodium Chloride 0.9% [Saline Flush] 10 ml FLUSH ASDIRECTED PRN Sodium Chloride 0.9% [Saline Flush] 2.5 ml FLUSH ASDIRECTED PRN - Assessment/Plan Last 24 Hours: My Active Orders 05/05/19 00:09 Saline Lock Insert [OM.PC] Stat 05/05/19 00:10 Sodium Chloride 0.9% [Saline Flush] 10 ml FLUSH ASDIRECTED PRN Sodium Chloride 0.9% [Saline Flush] 2.5 ml FLUSH ASDIRECTED PRN
[2019-05-05] MEDS ORDERED: Sodium Chloride 0.9% 10 ML Syringe FLUSH PRN (00:10)
[2019-05-05] MEDS ORDERED: Sodium Chloride 0.9% 2.5 ML Syringe FLUSH PRN (00:10)
[2019-05-05] MEDS ORDERED: Ondansetron 4 MG/2 ML SDV IVPUSH ONE (00:10)
[2019-05-05] MEDS ORDERED: Sodium Chloride 0.9% 1,000 ML IV ONE (00:10)
[2019-05-05 00:51] LABS: CHLORIDE,CL 101 mmol/L (98-107); SODIUM,NA 137 mmol/L (136-145)
[2019-05-05 01:50] VITALS: BP 112/70
== END 2019-05-05 01:40 | disposition home or self-care (01) ==
LOC: MW.ED 23:30
DX: R94.5 Abnormal results of liver function studies (principal); Z91.040 Latex allergy status
CPT/HCPCS: 80053; 82140; 85025; 85610; 96361; 96374; 99284; J2405; J7040; 99283

== ENCOUNTER 2019-07-05 17:37 | Emergency (ER) | payer SELFPAY ==
[2019-07-05 17:52] VITALS: BP 151/86; PULSE 75
[2019-07-05] MEDS ORDERED: Ketorolac 60 MG/2 ML SDV IM ONE (18:02)
[2019-07-05] MEDS ORDERED: methylPREDNISolone Sodium Succinate 125 MG/2 ML SDV IM ONE (18:02)
--- NOTE | 2019-07-05 18:25 | EDM.PDOC ---
ED HPI GENERAL MEDICAL PROBLEM - General Chief Complaint: Back Pain or Injury Stated Complaint: BACK PAIN Time Seen by Provider: 07/05/19 17:47 Source of Information: Reports: Patient History Limitations: Reports: No Limitations - History of Present Illness INITIAL COMMENTS - FREE TEXT/NARRATIVE: HISTORY AND PHYSICAL: History of present illness: Patient is a 29-year-old female who presents to the ED today for concern of low back pain. Patient rates her pain a 10 out of 10. Patient states over the past 3 -4 weeks she has been having issues with her low back with sciatic to the right. Patient states she has not gone into a provider because she does not have health insurance. Patient states today she had bent over to stretch and felt a pop and had worsening 10 out of 10 back pain with sciatic down the right. Patient states the pain is in the same distribution that it has been for the past 3-4 weeks but the intensity is increased today. Patient denies any loss or retention of bowel and bladder function or any saddle anesthesia. Patient denies any trauma or injury. Patient states she did take one dose of ibuprofen earlier this morning without relief of symptoms and has not taken anymore. Patient denies fever, chills, chest pain, shortness of breath, or cough. Denies headache, neck stiff ness, change in vision, syncope, or near syncope. Denies nausea, vomiting, abdominal pain, diarrhea, constipation, or dysuria. Has not noted any blood in urine or stool. Patient has been eating and drinking appropriately. Review of systems: As per history of present illness and below otherwise all systems reviewed and negative. Past medical history: As per history of present illness and as reviewed below otherwise noncontributory. Surgical history: As per history of present illness and as reviewed below otherwise noncontributory. Social history: See social history for further information Family history: As per history of present illness and as reviewed below otherwise noncontributory. Physical exam: General: Patient is alert, oriented, and in no acute distress. Patient laying comfortably on exam table but tearful throughout exam. HEENT: Atraumatic, normocephalic, pupils equal and reactive bilaterally, negative for conjunctival pallor or scleral icterus, mucous membranes moist, TMs normal bilaterally, throat clear, neck supple, nontender, trachea midline. No drooling or trismus noted. No meningeal signs. No hot potato voice noted. Lungs: Clear to auscultation, breath sounds equal bilaterally, chest nontender. Heart: S1S2, regular rate and rhythm without overt murmur Abdomen: Soft, nondistended, nontender. Negative for masses or hepatosplenomegaly. Negative for costovertebral tenderness. Pelvis: Stable nontender. Genitourinary: Deferred. Rectal: Deferred. Skin: Intact, warm, dry. No lesions or rashes noted. Extremities: Atraumatic, negative for cords or calf pain. Neurovascular unremarkable. No obvious deformities of the complete spine. No step-offs, crepitus, or pain to palpation of the complete spine and spinous processes. Patient does have moderate pain to palpation of the right side of the paraspinous muscle of the lumbar spine. Patient has full range of motion of the cervical and thoracic with limited range of motion of the lumbar due to pain. Patient does have full range of motion of bilateral upper and lower extremities without pain or deficits. Neuro: Awake, alert, oriented. Cranial nerves II through XII unremarkable. Cerebellum unremarkable. Motor and sensory unremarkable throughout. Exam nonfocal. Notes: Patient does express great relief from therapeutics today. Discussed the importance for follow-up with primary care provider. Voices understanding and is agreeable to plan of care. Denies any further questions or concerns at this time. Diagnostics: Lumbar x-ray Therapeutics: Norflex, Toradol, Solu-Medrol Prescription: Diclofenac, Flexeril, Medrol dose pack Impression: Acute low back pain Plan: 1. Rest, ice, elevate the affected area. You can apply ice and or heat 15 minutes on, 15 minutes off. 2. Tylenol as directed for pain management or discomfort. 3. Follow up with the primary care provider as discussed. Return to the ED as needed and as discussed. Definitive disposition and diagnosis as appropriate pending reevaluation and review of above. Right Lower Back Pain Score (Numeric/FACES): 10 - Related Data Allergies Allergy/AdvReac Type Severity Reaction Status Date / Time latex Allergy Rash Verified 07/05/19 17:49 Home Meds: Home Meds . 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: Musculoskeletal History: Reports: None Neurological History: Reports: None Psychiatric History: Reports: Anxiety Endocrine/Metabolic History: Reports: None Hematologic History: Reports: None Immunologic History: Reports: None Oncologic (Cancer) History: Reports: None Dermatologic History: Reports: None - Infectious Disease History Infectious Disease History: Reports: None - Past Surgical History Head Surgeries/Procedures: Reports: None Social & Family History - Family History Family Medical History: Noncontributory - Tobacco Use Smoking Status *Q: Current Every Day Smoker Years of Tobacco use: 10 Packs/Tins Daily: 1 - Caffeine Use Caffeine Use: Reports: None - Recreational Drug Use Recreational Drug Use: No ED ROS GENERAL - Review of Systems Review Of Systems: ROS reveals no pertinent complaints other than HPI. ED EXAM, GENERAL - Physical Exam Exam: See Below (See dictation) Course - Vital Signs Last Recorded V/S: Last Vital Signs Temp 36.2 C 07/05/19 17:49 Pulse 75 07/05/19 17:49 Resp 16 07/05/19 17:49 BP 151/86 H 07/05/19 17:49 Pulse Ox 96 07/05/19 17:49 - Orders/Labs/Meds Meds: Medications Discontinued Medications Generic Name Dose Route Start Last Admin Trade Name Jorge PRN Reason Stop Dose Admin Ketorolac Tromethamine 60 mg 07/05/19 18:02 07/05/19 18:15 Toradol IM 07/05/19 18:03 60 mg ONETIME ONE Administration Methylprednisolone Sodium Succinate 125 mg 07/05/19 18:02 07/05/19 18:11 Solu-Medrol IM 07/05/19 18:03 125 mg ONETIME ONE Administration Orphenadrine Citrate 60 mg 07/05/19 18:01 07/05/19 18:13 Norflex IM 07/05/19 18:02 60 mg NOW STA Administration Departure - Departure Time of Disposition: 19:04 Disposition: Home, Self-Care 01 Clinical Impression: Acute low back pain Qualifiers: Back pain laterality: right Sciatica presence: with sciatica Sciatica laterality: sciatica of right side Qualified Code(s): M54.41 - Lumbago with sciatica, right side - Discharge Information Referrals: PCP,Unknown [Primary Care Provider] - Forms: ED Department Discharge Additional Instructions: The following information is given to patients seen in the emergency department who are being discharged to home. This information is to outline your options for follow-up care. We provide all patients seen in our emergency department with a follow-up referral. The need for follow-up, as well as the timing and circumstances, are variable depending upon the specifics of your emergency department visit. If you don't have a primary care physician on staff, we will provide you with a referral. We always advise you to contact your personal physician following an emergency department visit to inform them of the circumstance of the visit and for follow-up with them and/or the need for any referrals to a consulting specialist. The emergency department will also refer you to a specialist when appropriate. This referral assures that you have the opportunity for follow-up care with a specialist. All of these measure are taken in an effort to provide you with optimal care, which includes your follow-up. Under all circumstances we always encourage you to contact your private physician who remains a resource for coordinating your care. When calling for follow-up care, please make the office aware that this follow-up is from your recent emergency room visit. If for any reason you are refused follow-up, please contact the [facility] Emergency Department at and asked to speak to the emergency department charge nurse. [facility] [address] [place] [id number] [place] [address] 1. Rest, ice, elevate the affected area. You can apply ice and or heat 15 minutes on, 15 minutes off. 2. Tylenol as directed for pain management or discomfort. Take medication as prescribed. 3. Follow up with the primary care provider as discussed. Return to the ED as needed and as discussed.
--- NOTE | 2019-07-05 18:55 | CR ---
Indication: Back pain. Technique: Three views of the lumbar spine were obtained. Comparison: None Findings: The alignment of the lumbar spine is within normal limits. The vertebral body heights are well maintained. Intervertebral disc space narrowing is identified at L5-S1. No acute fracture or subluxation is identified. Impression: No acute fracture. Degenerative changes of the lower lumbar spine. Dictated by Gaby Valencia MD @ Jul 05 2019 6:53PM Signed by Dr. Gaby Valencia @ Jul 05 2019 6:53PM
== END 2019-07-05 19:15 | disposition home or self-care (01) ==
LOC: MW.ED 17:37
DX: M54.41 Lumbago with sciatica, right side (principal); F17.210 Nicotine dependence, cigarettes, uncomplicated; Z91.040 Latex allergy status
CPT/HCPCS: 72100; 96372; 99283; J1885; J2360; J2930

== ENCOUNTER 2019-08-01 02:52 | Emergency (ER) | payer SELFPAY ==
[2019-08-01 03:07] VITALS: BP 123/89
--- NOTE | 2019-08-01 03:08 | EDM.PDOC ---
ED HPI GENERAL MEDICAL PROBLEM - General Chief Complaint: General Stated Complaint: MEDICAL CLEARANCE Time Seen by Provider: 08/01/19 03:05 Source of Information: Reports: Patient, Police - History of Present Illness INITIAL COMMENTS - FREE TEXT/NARRATIVE: HISTORY AND PHYSICAL: History of present illness: []Patient presents for drug-related charges tonight, arrested for paraphernalia She has his history of low back pain treated with Toradol and Flexeril No injury or trauma no fever nausea vomiting chills sweats no chest pain shortness breath headache dizziness palpitation about a urine symptoms Out of medication for a couple of weeks Review of systems: As per history of present illness and below otherwise all systems reviewed and negative. Past medical history: As per history of present illness and as reviewed below otherwise noncontributory. Surgical history: As per history of present illness and as reviewed below otherwise noncontributory. Social history: No reported history of drug or alcohol abuse. Family history: As per history of present illness and as reviewed below otherwise noncontributory. Physical exam: HEENT: Atraumatic, normocephalic, pupils reactive, negative for conjunctival pallor or scleral icterus, mucous membranes moist, throat clear, neck supple, nontender, trachea midline. Lungs: Clear to auscultation, breath sounds equal bilaterally, chest nontender. Heart: S1S2, regular, negative for clicks, rubs, or JVD. Abdomen: Soft, nondistended, nontender. Negative for masses or hepatosplenomegaly. Negative for costovertebral tenderness. Pelvis: Stable nontender. Genitourinary: Deferred. Rectal: Deferred. Extremities: Atraumatic, negative for cords or calf pain. Neurovascular unremarkable. Neuro: Awake, alert, oriented. Cranial nerves II through XII unremarkable. Cerebellum unremarkable. Motor and sensory unremarkable throughout. Exam nonfocal. Diagnostics: [] Therapeutics: [Toradol Flexeril ] Impression: Medical screening exam History of Back pain definitive disposition and diagnosis as appropriate pending reevaluation and review of above. - Related Data Allergies Allergy/AdvReac Type Severity Reaction Status Date / Time latex Allergy Rash Verified 07/05/19 17:49 Home Meds: Home Meds . 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: Musculoskeletal History: Reports: None Neurological History: Reports: None Psychiatric History: Reports: Anxiety Endocrine/Metabolic History: Reports: None Hematologic History: Reports: None Immunologic History: Reports: None Oncologic (Cancer) History: Reports: None Dermatologic History: Reports: None - Infectious Disease History Infectious Disease History: Reports: None - Past Surgical History Head Surgeries/Procedures: Reports: None Social & Family History - Family History Family Medical History: Noncontributory - Caffeine Use Caffeine Use: Reports: None ED ROS GENERAL - Review of Systems Review Of Systems: See Below ED EXAM, GENERAL - Physical Exam Exam: See Below Departure - Departure Time of Disposition: 03:07 Disposition: Home, Self-Care 01 Condition: Good Clinical Impression: Encounter for medical screening examination - Discharge Information Referrals: Catina Sanchez PA [Primary Care Provider] - Additional Instructions: The following information is given to patients seen in the emergency department who are being discharged to home. This information is to outline your options for follow-up care. We provide all patients seen in our emergency department with a follow-up referral. The need for follow-up, as well as the timing and circumstances, are variable depending upon the specifics of your emergency department visit. If you don't have a primary care physician on staff, we will provide you with a referral. We always advise you to contact your personal physician following an emergency department visit to inform them of the circumstance of the visit and for follow-up with them and/or the need for any referrals to a consulting specialist. The emergency department will also refer you to a specialist when appropriate. This referral assures that you have the opportunity for follow-up care with a specialist. All of these measure are taken in an effort to provide you with optimal care, which includes your follow-up. Under all circumstances we always encourage you to contact your private physician who remains a resource for coordinating your care. When calling for follow-up care, please make the office aware that this follow-up is from your recent emergency room visit. If for any reason you are refused follow-up, please contact the [facility] emergency department at and asked to speak to the emergency department charge nurse.
== END 2019-08-01 03:19 | disposition home or self-care (01) ==
LOC: MW.ED 02:52
DX: Z13.9 Encounter for screening, unspecified (principal); Z91.040 Latex allergy status
CPT/HCPCS: 99283

== ENCOUNTER 2019-12-11 18:51 | Emergency (ER) | payer SELFPAY ==
[2019-12-11] MEDS ORDERED: Sodium Chloride 0.9% 1,000 ML IV ONE (19:37)
[2019-12-11] MEDS ORDERED: Sodium Chloride 0.9% 2.5 ML Syringe FLUSH PRN (19:37)
[2019-12-11] MEDS ORDERED: Sodium Chloride 0.9% 10 ML Syringe FLUSH PRN (19:37)
--- NOTE | 2019-12-11 19:37 | EDM.PDOC ---
ED HPI GENERAL MEDICAL PROBLEM - General Chief Complaint: Lower Extremity Injury/Pain Stated Complaint: SWELLING IN LEGS Time Seen by Provider: 12/11/19 19:30 Source of Information: Reports: Patient History Limitations: Reports: No Limitations - History of Present Illness INITIAL COMMENTS - FREE TEXT/NARRATIVE: HISTORY AND PHYSICAL: History of present illness: Patient is a 29-year-old female presents the ED with complaint of bilateral lower extremity swelling. The swelling began approximately 5 days ago and has progressively gotten worse. She states it is progressing despite her keeping her legs elevated. She denies any injury or trauma to the lower extremities, recent travel, chest pain, shortness of breath, fevers, chills. She denies significant past medical history. Review of systems: As per history of present illness and below otherwise all systems reviewed and negative. Past medical history: As per history of present illness and as reviewed below otherwise noncontributory. Surgical history: As per history of present illness and as reviewed below otherwise noncontributory. Social history: No reported history of drug or alcohol abuse. Family history: As per history of present illness and as reviewed below otherwise noncontributory. Physical exam: General: Patient sitting comfortably in no acute distress and nontoxic appearing HEENT: Atraumatic, normocephalic, pupils reactive, negative for conjunctival pallor or scleral icterus, mucous membranes moist, throat clear, neck supple, nontender, trachea midline. No meningeal signs. Lungs: Clear to auscultation, breath sounds equal bilaterally, chest nontender. Heart: S1S2, regular, negative for clicks, rubs, or overt murmur. Abdomen: Soft, nondistended, nontender. Negative for masses or hepatosplenomegaly. Negative for costovertebral tenderness. No rigidity, rebound , guarding. Pelvis: Stable nontender. Genitourinary: Deferred. Rectal: Deferred. Extremities: Non-pitting lower extremity edema bilaterally. Atraumatic, negative for cords or calf pain. Neurovascular unremarkable. Neuro: Awake, alert, oriented. Cranial nerves II through XII unremarkable. Cerebellum unremarkable. Motor and sensory unremarkable throughout. Exam nonfocal. Notes: Diagnostics: CBC, CMP, UA, Chest x-ray Therapeutics: 1L NS IV 20mg Lasix IV Prescriptions: Macrobid Lasix Impression: Lower extremity swelling, UTI Plan: Keep legs elevated and use compression stockings as instructed Take medications as discussed Follow-up with primary care provider, please call the number provided to schedule an appointment Return to ED as needed as discussed Definitive disposition and diagnosis as appropriate pending reevaluation and review of above. 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: Musculoskeletal History: Reports: None Other Musculoskeletal History: buldging disc Neurological History: Reports: None Psychiatric History: Reports: Anxiety Endocrine/Metabolic History: Reports: None Hematologic History: Reports: None Immunologic History: Reports: None Oncologic (Cancer) History: Reports: None Dermatologic History: Reports: None - Infectious Disease History Infectious Disease History: Reports: Hepatitis C - Past Surgical History Head Surgeries/Procedures: Reports: None Social & Family History - Family History Family Medical History: Noncontributory - Tobacco Use Smoking Status *Q: Current Every Day Smoker Years of Tobacco use: 10 Packs/Tins Daily: 1 - Caffeine Use Caffeine Use: Reports: Coffee - Recreational Drug Use Recreational Drug Use: No Review of Systems - Review of Systems Review Of Systems: Comprehensive ROS is negative, except as noted in HPI. ED EXAM, GENERAL - Physical Exam Exam: See Below (See dictation) Course - Vital Signs Last Recorded V/S: Last Vital Signs Temp 97.0 F 12/11/19 19:00 Pulse 58 L 12/11/19 20:25 Resp 18 12/11/19 20:25 BP 124/81 12/11/19 20:25 Pulse Ox 95 12/11/19 20:25 - Orders/Labs/Meds Orders: Active Orders 24 hr Category Date Time Status Sodium Chloride 0.9% [Saline Flush] Med 12/11/19 19:37 Ordered 10 ml FLUSH ASDIRECTED PRN Sodium Chloride 0.9% [Saline Flush] Med 12/11/19 19:37 Ordered 2.5 ml FLUSH ASDIRECTED PRN Saline Lock Insert [OM.PC] Stat Oth 12/11/19 19:37 Ordered Medication Orders Sodium Chloride (Saline Flush) 10 ml FLUSH ASDIRECTED PRN PRN Reason: Keep Vein Open Last Admin: 12/11/19 19:55 Dose: 10 ml Sodium Chloride (Saline Flush) 2.5 ml FLUSH ASDIRECTED PRN PRN Reason: Keep Vein Open Last Admin: 12/11/19 19:42 Dose: 2.5 ml Labs: Laboratory Tests 12/11/19 12/11/19 12/11/19 Range/Units 19:30 19:40 19:40 WBC 5.91 (4.0-11.0) K/uL RBC 4.12 L (4.30-5.90) M/uL Hgb 12.7 (12.0-16.0) g/dL Hct 38.3 (36.0-46.0) % MCV 93.0 (80.0-98.0) fL MCH 30.8 (27.0-32.0) pg MCHC 33.2 (31.0-37.0) g/dL RDW Std Deviation 42.5 (28.0-62.0) fl RDW Coeff of Shani 13 (11.0-15.0) % Plt Count 178 (150-400) K/uL MPV 10.20 (7.40-12.00) fL Neut % (Auto) 34.1 L (48.0-80.0) % Lymph % (Auto) 56.2 H (16.0-40.0) % [place] % (Auto) 5.8 (0.0-15.0) % Eos % (Auto) 3.6 (0.0-7.0) % Baso % (Auto) 0.3 (0.0-1.5) % Neut # (Auto) 2.0 (1.4-5.7) K/uL Lymph # (Auto) 3.3 H (0.6-2.4) K/uL [place] # (Auto) 0.3 (0.0-0.8) K/uL Eos # (Auto) 0.2 (0.0-0.7) K/uL Baso # (Auto) 0.0 (0.0-0.1) K/uL Nucleated RBC % 0.0 /100WBC Nucleated RBCs # 0 K/uL Sodium 142 (136-145) mmol/L Potassium 4.0 (3.5-5.1) mmol/L Chloride 105 (98-107) mmol/L Carbon Dioxide 30.3 (21.0-32.0) mmol/L BUN 9 (7.0-18.0) mg/dL Creatinine 0.7 (0.6-1.0) mg/dL Est Cr Clr Drug Dosing 128.23 mL/min Estimated GFR (MDRD) > 60.0 ml/min Glucose 88 (74-106) mg/dL Calcium 8.6 (8.5-10.1) mg/dL Total Bilirubin 0.2 (0.2-1.0) mg/dL AST 42 H (15-37) IU/L ALT 78 H (14-63) IU/L Alkaline Phosphatase 50 (46-116) U/L Total Protein 6.7 (6.4-8.2) g/dL Albumin 3.3 L (3.4-5.0) g/dL Globulin 3.4 (2.6-4.0) g/dL Albumin/Globulin Ratio 1.0 (0.9-1.6) Urine Color YELLOW Urine Appearance SLT CLOUDY Urine pH 8.5 H (5.0-8.0) Ur Specific [place] 1.015 (1.001-1.035) Urine Protein NEGATIVE (NEGATIVE) mg/dL Urine Glucose (UA) NEGATIVE (NEGATIVE) mg/dL Urine Ketones NEGATIVE (NEGATIVE) mg/dL Urine Occult Blood LARGE H (NEGATIVE) Urine Nitrite NEGATIVE (NEGATIVE) Urine Bilirubin NEGATIVE (NEGATIVE) Urine Urobilinogen 0.2 (<2.0) EU/dL Ur Leukocyte Esterase NEGATIVE (NEGATIVE) Urine RBC 3-6 (0-2/HPF) Urine WBC 0-3 (0-5/HPF) Ur Epithelial Cells FEW (NONE-FEW) Urine Bacteria 2+ H (NEGATIVE) Meds: Medications Generic Name Dose Route Start Last Admin Trade Name Freq PRN Reason Stop Dose Admin Sodium Chloride 10 ml 12/11/19 19:37 12/11/19 19:55 Saline Flush FLUSH 10 ml ASDIRECTED PRN Administration Keep Vein Open Sodium Chloride 2.5 ml 12/11/19 19:37 12/11/19 19:42 Saline Flush FLUSH 2.5 ml ASDIRECTED PRN Administration Keep Vein Open Discontinued Medications Generic Name Dose Route Start Last Admin Trade Name Jorge PRN Reason Stop Dose Admin Furosemide 20 mg 12/11/19 20:20 12/11/19 20:28 Lasix IVPUSH 12/11/19 20:21 20 mg NOW ONE Administration Sodium Chloride 1,000 mls @ 999 mls/hr 12/11/19 19:37 12/11/19 19:53 Normal Saline IV 12/11/19 20:37 999 mls/hr STAT ONE Administration Departure - Departure Time of Disposition: 20:41 Disposition: Home, Self-Care 01 Condition: Good Clinical Impression: Swelling of lower extremity, UTI (urinary tract infection) - Discharge Information Prescriptions: Furosemide [Lasix] 20 mg PO DAILY #5 tablet Nitrofurantoin Monohyd/M-Cryst [Macrobid 100 mg Capsule] 100 mg PO BID 7 Days # 14 capsule Referrals: Catina Sanchez PA [Primary Care Provider] - Forms: ED Department Discharge Additional Instructions: The following information is given to patients seen in the emergency department who are being discharged to home. This information is to outline your options for follow-up care. We provide all patients seen in our emergency department with a follow-up referral. The need for follow-up, as well as the timing and circumstances, are variable depending upon the specifics of your emergency department visit. If you don't have a primary care physician on staff, we will provide you with a referral. We always advise you to contact your personal physician following an emergency department visit to inform them of the circumstance of the visit and for follow-up with them and/or the need for any referrals to a consulting specialist. The emergency department will also refer you to a specialist when appropriate. This referral assures that you have the opportunity for follow-up care with a specialist. All of these measure are taken in an effort to provide you with optimal care, which includes your follow-up. Under all circumstances we always encourage you to contact your private physician who remains a resource for coordinating your care. When calling for follow-up care, please make the office aware that this follow-up is from your recent emergency room visit. If for any reason you are refused follow-up, please contact the [facility] Emergency Department at and asked to speak to the emergency department charge nurse. [facility] [address] [place] [address] [facility] [address] [place] [phone] Keep legs elevated and use compression stockings as instructed Take medications as discussed Follow-up with primary care provider, please call the number provided to schedule an appointment Return to ED as needed as discussed Sepsis Event Note - Evaluation Sepsis Screening Result: No Definite Risk - Focused Exam Vital Signs: Vital Signs Temp Pulse Resp BP Pulse Ox 12/11/19 20:25 58 L 18 124/81 95 12/11/19 19:00 97.0 F 88 17 122/75 95 Date Exam was Performed: 12/11/19 Time Exam was Performed: 20:41 - My Orders Last 24 Hours: My Active Orders 12/11/19 19:37 Sodium Chloride 0.9% [Saline Flush] 10 ml FLUSH ASDIRECTED PRN Sodium Chloride 0.9% [Saline Flush] 2.5 ml FLUSH ASDIRECTED PRN Saline Lock Insert [OM.PC] Stat - Assessment/Plan Last 24 Hours: My Active Orders 12/11/19 19:37 Sodium Chloride 0.9% [Saline Flush] 10 ml FLUSH ASDIRECTED PRN Sodium Chloride 0.9% [Saline Flush] 2.5 ml FLUSH ASDIRECTED PRN Saline Lock Insert [OM.PC] Stat
[2019-12-11 20:17] LABS: BLOOD UREA NITROGEN,BUN 9 mg/dL (7.0-18.0); CARBON DIOXIDE,CO2 30.3 mmol/L (21.0-32.0); CHLORIDE,CL 105 mmol/L (98-107); GLUCOSE RANDOM 88 mg/dL (74-106); SODIUM,NA 142 mmol/L (136-145)
[2019-12-11] MEDS ORDERED: Furosemide 40 MG/4 ML VIAL IVPUSH ONE (20:20)
[2019-12-11 21:04] VITALS: BP 130/83; PULSE 66
== END 2019-12-11 21:00 | disposition home or self-care (01) ==
LOC: MW.ED 18:51
DX: N39.0 Urinary tract infection, site not specified (principal); M79.89 Other specified soft tissue disorders; Z91.040 Latex allergy status; F17.210 Nicotine dependence, cigarettes, uncomplicated
CPT/HCPCS: 36415; 80053; 81001; 85025; 96361; 96374; 99283; J1940; J7030

== ENCOUNTER 2024-08-23 20:01 | Emergency (ER) | payer SELFPAY ==
[2024-08-23] MEDS ORDERED: oxyCODONE 5 MG Tab PO STA (20:19)
[2024-08-23] MEDS: Ketorolac 30 MG/ML SDV IM STA (20:49)
[2024-08-23] MEDS: Benzocaine 20% Topical Spray UD MUCMEM ONE (20:51)
[2024-08-23] MEDS: Lidocaine 2% Viscous Solution 15 ML UD PO ONE (20:51)
[2024-08-23 21:09] VITALS: BP 113/76; PULSE 59
== END 2024-08-23 21:08 | disposition home or self-care (01) ==
LOC: MW.ED 20:01
DX: K04.7 Periapical abscess without sinus (principal); Z79.899 Other long term (current) drug therapy; Z91.040 Latex allergy status; Z75.8 Other problems related to medical facilities and other health care
CPT/HCPCS: 96372; 99283; A9270; J1885

== ENCOUNTER 2024-08-24 20:34 | Emergency (ER) | payer MEDICAID ==
[2024-08-24] MEDS: Bupivacaine 0.5% 10 ML SDV INJECT STA (21:00)
[2024-08-24] MEDS: Lidocaine 1% PF 2 ML SDV INJECT STA (21:00)
[2024-08-24 21:40] VITALS: BP 113/64; PULSE 62
== END 2024-08-24 21:39 | disposition home or self-care (01) ==
LOC: MW.ED 20:34
DX: K08.89 Other specified disorders of teeth and supporting structures (principal); Z91.040 Latex allergy status; Z75.8 Other problems related to medical facilities and other health care; Z79.899 Other long term (current) drug therapy
CPT/HCPCS: 64400; 99282; J0665; J3490

== ENCOUNTER 2024-12-20 16:58 | Emergency (ER) | payer MEDICAID | END 2024-12-20 19:20 | disposition left against medical advice (07) | LOC: MW.ED 16:58 | DX: Z53.21 Procedure and treatment not carried out due to patient leaving prior to being seen by health care provider (principal) | CPT/HCPCS: 93005 ==

== ENCOUNTER 2024-12-22 11:02 | Emergency (ER) | payer MEDICAID ==
[2024-12-22 12:59] VITALS: BP 109/55; PULSE 54
== END 2024-12-22 12:58 | disposition home or self-care (01) ==
LOC: MW.ED 11:02
DX: J40 Bronchitis, not specified as acute or chronic (principal); Z91.040 Latex allergy status; Z79.52 Long term (current) use of systemic steroids; Z79.899 Other long term (current) drug therapy; Z75.8 Other problems related to medical facilities and other health care
CPT/HCPCS: 87428-QW; 93005; 99285